=== PATIENT | female | born 1970 | race Asian ===

== ENCOUNTER 2024-09-13 00:37 | Emergency (ER) | payer OTHER ==
[~2024-09-13] VITALS: Ht 157.5 cm; Wt 58.0 kg
[~2024-09-13 00:37] MED LIST: FLUT1DIS6 IH
[2024-09-13 00:57] VITALS: TEMP 97.4
[2024-09-13 01:17] VITALS: BP 153/84
[2024-09-13] MEDS: PredniSONE 20 MG TABLET PO ONE (01:33)
[2024-09-13] MEDS: ALBUTEROL SULFATE 2.5 MG/0.5 ML NEB SOLUTION NEB ONE (01:55)
[2024-09-13] MEDS: IPRATROPIUM BROMIDE 0.5 MG/2.5 ML NEB SOLUTION NEB ONE (01:55)
[2024-09-13 01:56] VITALS: PULSE 99; RESP 24; O2SAT 98
[2024-09-13] MEDS ORDERED: PRED-554 PO (02:43)
== END 2024-09-13 02:56 | disposition home or self-care (01) ==
LOC: EMS 00:39
DX: J45.909 Unspecified asthma, uncomplicated (principal); E11.9 Type 2 diabetes mellitus without complications; I10 Essential (primary) hypertension; Z79.51 Long term (current) use of inhaled steroids
CPT/HCPCS: 99283; 94640; J7512; 94060